=== PATIENT | male | born 1955 | race Caucasian/White ===

== ENCOUNTER 2018-09-23 08:43 | Emergency (ER) | payer BC, OTHER ==
[~2018-09-23] VITALS: Ht 167.6 cm; Wt 99.1 kg
[2018-09-23 08:55] VITALS: BP 185/99; PULSE 97; RESP 18; Ht 167.6 cm; Wt 99.1 kg
[2018-09-23] MEDS ORDERED: ACETAMINOPHEN 325 MG TAB PO ONE (10:30)
[2018-09-23] MEDS ORDERED: ACET500C5 PO (11:24)
--- NOTE | 2018-09-23 11:43 | ERD ---
ER Documentation Chief Complaint Chief Complaint right eye pain/swelling x 2 days post falling on potted plant HPI 63-year-old male patient with a past medical history of diabetes, hypertension presents to the ED stating that he has some right forehead and pain that started about 2 days ago after he actually tripped and fell and landed on a potted plant. Denies any loss of consciousness. States that this was a mechanical fall. Reports he does not take any blood thinners. Denies having any eye pain, blurred vision, vision loss, foreign bodies in his eye. Denies wearing any contacts. States that he has wears glasses. Denies any fever, chills, neck stiffness, abdominal pain, chest pain, shortness of breath, dizziness. ROS All systems reviewed and are negative except as per history of present illness. Medications Home Meds Active Scripts Acetaminophen* (Tylophen*) 500 Mg Capsule, 1 CAP PO Q6H PRN for PAIN AND OR ELEVATED TEMP, #20 CAP Prov:DAJA MONTERO PA-C 09/23/18 Reported Medications [None ] No Conflict Check 10/09/09 PMhx/Soc History of Surgery: No Hx Neurological Disorder: No Hx Respiratory Disorders: No Hx Cardiac Disorders: No Hx Miscellaneous Medical Probl: Yes (ETOH) Hx Alcohol Use: Yes (UNKN AMT) Hx Substance Use: No Hx Tobacco Use: No Smoking Status: Never smoker FmHx Family History: No diabetes, No coronary disease Physical Exam Vitals Vital Signs Date Temp Pulse Resp B/P (MAP) Pulse Ox O2 O2 Flow FiO2 Time Delivery Rate 09/23/18 97.9 97 18 185/99 97 08:55 (127) Physical Exam Const: [id number], well-nourished. In no acute distress. Head: Atraumatic, normocephalic. Ecchymosis, edema noted surrounding the right periorbital structures with a frontal right hematoma noted. No perez sign. No raccoon eyes. Eyes: Normal Conjunctiva without injection. No purulent discharge. PERRLA. EOMI ENT: Normal external ear. Ear canal without erythema. Tympanic membrane pearly roger without effusion or bulging. No hemotympanum. Nasal canal clear with normal turbinates. Moist oropharynx without tonsillar exudates. Non-erythematous pharynx. Uvula midline. No drooling. No trismus. Neck: No cervical midline tenderness. Full range of motion. No meningismus. No cervical lymphadenopathy. No JVD. Resp: Clear to auscultation bilaterally. No wheezing, rhonchi, rales, or crackles. No accessory muscle use. No retractions. Cardio: Regular rate and rhythm. No murmurs, rubs or gallops. Abd: Soft, non tender, non distended. Normal bowel sounds. No palpable masses. No rebound tenderness. No guarding. Negative McBurney's Point. Negative Ness's Sign. Skin: Normal skin turgor. No petechiae or rashes Back: No midline tenderness. No CVA tenderness. Ext: No cyanosis, or edema. Distal pulses intact bilaterally. Neur: Awake and alert. Normal gait. Normal coordination. Cranial Nerves II- VII intact. Normal finger to nose. Muscle strength 5/5. Sensation intact. Psych: Normal Mood and Affect Results 24 hrs Current Medications Medications Dose Sig/Macario Start Time Status Last (Trade) Ordered Route PRN Stop Time Admin Dose Reason Admin 650 mg ONCE ONCE 09/23/18 DC 09/23/18 Acetaminophen PO 10:30 10:19 (Tylenol 09/23/18 10:31 Tab) Procedures/MDM 63-year-old male patient with a past medical history of diabetes, hypertension presents to ED complaining of right eyelid swelling, bruising that started about 2 days ago after falling on a potted plant. Patient is afebrile and nontoxic- appearing. Patient had a blood pressure of 185/99. Blood Pressure Assessment: Patient's blood pressure was elevated (>120/80) but appears stable without evidence of hypertension emergency or urgency. The patient was counseled about the risks of hypertension and urged to pursue outpatient monitoring and therapy within a week with their primary care physician. Patient was given Tylenol 650 mg here in the ED with improvement of his pain. A CT of the brain without contrast, CT of the facial structures was ordered to further evaluate patient. Visual acuity was ordered -patient reports that he did not bring his glasses, therefore was unable to read, however states that he does not have any eye pain, visual loss, blurred vision due to the injury. IMPRESSION: 1. No evidence of acute intracranial pathology. 2. Mild right parietal scalp swelling. 3. Marked right periorbital soft tissue swelling. See separate CT orbit report for further details. 4. Mild volume loss. IMPRESSION: 1. Marked right periorbital soft tissue swelling, without orbital fracture/injury identified. 2. Subtle left nasal fracture and right nasal deformity, age indeterminate. 3. Paranasal sinus disease described above. Patient likely sustained a right eye contusion with no evidence of retrobulbar hemorrhage, glaucoma, orbital fracture, orbital cellulitis, or other emergent conditions. Low suspicion for acute myocardial infarction, pneumothorax, pericarditis, myocarditis, endocarditis, pneumonia, cardiac tamponade, pulmonary embolism, pleural effusion, AAA, aortic dissection, Boerhaave's syndrome, cardiac dysrhythmias,meningitis. Low suspicion for intracranial bleed, subarachnoid hemorrhage, meningitis, TIA, stroke, subdural hematoma, epidural hematoma, subarachnoid hemorrhage, or other emergent conditions. Diagnosis: Contusion of eye, Nasal bone fracture Discharge medications: Tylenol Follow up with primary care physician in 1-2 days. Instructed patient to return to the ED sooner for any worsening symptoms. Patient's questions were answered. Patient is hemodynamically stable. Patient understood and agreed with discharge plan. Patient discharged stable. Disclaimer: Inadvertent spelling and grammatical errors are likely due to EHR/dictation software use and do not reflect on the overall quality of patient care. Also, please note that the electronic time recorded on this note does not necessarily reflect the actual time of the patient encounter. Departure Diagnosis: Primary Impression: Contusion, eye, right Encounter type: initial encounter Qualified Codes: S05.11XA - Contusion of eyeball and orbital tissues, right eye, initial encounter Additional Impression: Nasal bone fracture Encounter type: initial encounter Fracture type: closed Qualified Codes: S02.2XXA - Fracture of nasal bones, initial encounter for closed fracture Condition: Stable Patient Instructions: Contusion, Eye, Facial Contusion, No Wakeup, Fracture, Nose Versus Contus (No X-Ray) Referrals: [facility] YOU HAVE RECEIVED A MEDICAL SCREENING EXAM AND THE RESULTS INDICATE THAT YOU DO NOT HAVE A CONDITION THAT REQUIRES URGENT TREATMENT IN THE EMERGENCY DEPARTMENT. FURTHER EVALUATION AND TREATMENT OF YOUR CONDITION CAN WAIT UNTIL YOU ARE SEEN IN YOUR DOCTORS OFFICE WITHIN THE NEXT 1-2 DAYS. IT IS YOUR RESPONSIBILITY TO MAKE AN APPOINTMENT FOR FOLOW-UP CARE. IF YOU HAVE A PRIMARY DOCTOR --you should call your primary doctor and schedule an appointment IF YOU DO NOT HAVE A PRIMARY DOCTOR YOU CAN CALL OUR PHYSICIAN REFERRAL HOTLINE AT IF YOU CAN NOT AFFORD TO SEE A PHYSICIAN YOU CAN CHOSE FROM THE FOLLOWING [facility] [address] [place] [facility] [address] [place] [facility] [address] [facility] [address] [facility] [address] [facility]. [facility] [address] [facility]. [facility] YOU HAVE RECEIVED A MEDICAL SCREENING EXAM AND THE RESULTS INDICATE THAT YOU DO NOT HAVE A CONDITION THAT REQUIRES URGENT TREATMENT IN THE EMERGENCY DEPARTMENT. FURTHER EVALUATION AND TREATMENT OF YOUR CONDITION CAN WAIT UNTIL YOU ARE SEEN IN YOUR DOCTORS OFFICE WITHIN THE NEXT 1-2 DAYS. IT IS YOUR RESPONSIBILITY TO MAKE AN APPOINTMENT FOR FOLOW-UP CARE. IF YOU HAVE A PRIMARY DOCTOR --you should call your primary doctor and schedule and appointment IF YOU DO NOT HAVE A PRIMARY DOCTOR YOU CAN CALL OUR PHYSICIAN REFERRAL HOTLINE AT . IF YOU CAN NOT AFFORD TO SEE A PHYSICIAN YOU CAN CHOSE FROM THE FOLLOWING [facility] INSTITUTIONS: [facility] [address] [place] [address] [facility] [address] [place] [address] [facility] [address] [place] [address] [facility] URGENT CARE/SPECIALTIES Additional Instructions: Llame al doctor MAANA y johanna joey RANJIT PARA DENTRO DE 2-3 MCGOWAN para para la derivacin para ruben a un especialista de orejas de nariz.Dgale a la secretaria que nosotros le instruimos hacer esta ranjit.Avise o llame si arroyo condicin se empeora antes de la ranjit. Regresa aqui si peor o no mejor. DAJA MONTERO PA-C Sep 23, 2018 11:43
== END 2018-09-23 11:30 | disposition left against medical advice (07) ==
LOC: FTE 08:43
DX: S05.11XA Contusion of eyeball and orbital tissues, right eye, initial encounter (principal); S02.2XXA Fracture of nasal bones, initial encounter for closed fracture; I10 Essential (primary) hypertension; E11.9 Type 2 diabetes mellitus without complications; W01.198A Fall on same level from slipping, tripping and stumbling with subsequent striking against other object, initial encounter; Y92.9 Unspecified place or not applicable
CPT/HCPCS: 70450; 70480